=== PATIENT | male | born 1935 | race Caucasian/White ===

== ENCOUNTER 2019-12-26 09:02 | Day surgery (SDC) | payer MEDICARE ==
[2019-12-25 10:35] LABS: BASOPHILS # (AUTO) 0.1 X10'3 (0-0.2); EOSINOPHILS # (AUTO) 0.3 X10'3 (0-0.9); EOSINOPHILS % (AUTO) 5.4 % (0-6); HEMATOCRIT 38.7 % (42.0-52.0); LYMPHOCYTES # (AUTO) 1.5 X10'3 (1.1-4.8); MEAN CORPUSCULAR HEMOGLOBIN 34.9 PG (27.0-31.0); MEAN CORPUSCULAR HGB CONC 33.7 g/dL (33.0-36.5); MEAN CORPUSCULAR VOLUME 103.7 FL (78-98); MEAN PLATELET VOLUME 8.9 FL (7.4-10.4); MONOCYTES # (AUTO) 0.5 X10'3 (0-0.9); MONOCYTES % (AUTO) 9.7 % (2-12); NEUTROPHILS # (AUTO) 2.9 X10'3 (1.8-7.7); NEUTROPHILS % (AUTO) 54.9 % (42-75); PLATELET COUNT 185 X10'3 (140-440); RED BLOOD COUNT 3.73 X10'6 (4.70-6.10); RED CELL DISTRIBUTION WIDTH 14.1 % (11.5-14.5); WHITE BLOOD COUNT 5.2 X10'3 (4.5-11.0)
[2019-12-25 10:46] LABS: ALBUMIN 3.2 G/DL (3.4-5.0); ANION GAP 4 (8-16); BLOOD UREA NITROGEN 28 MG/DL (7-18); BUN/CREATININE RATIO 27.5 (5.4-32.0); CALCIUM 8.8 MG/DL (8.5-10.1); CHLORIDE 104 MMOL/L (99-107); CREATININE 1.02 MG/DL (0.60-1.10); GLUCOSE 103 MG/DL (70-104); PARTIAL THROMBOPLASTIN TIME 27 SECONDS (22-32); POTASSIUM 4.6 MMOL/L (3.5-5.1); SODIUM 139 MMOL/L (135-145); TOTAL CARBON DIOXIDE 30.9 MMOL/L (24-32); eGFR 70 ML/MIN
[2019-12-26] VITALS (11 sets, daily range): BP systolic 105–197; BP diastolic 56–106
[~2019-12-26] VITALS: Ht 182.9 cm; Wt 68.4 kg
[~2019-12-26 09:02] MED LIST: ATOR10TA87 PO; CLOP75TA35 PO; DIGO250T PO; FLUOROURACIL; GLUC1CAP17 PO; HYDR-4353 PO; METH-360 PO; OMEG1CAP2 PO; TRAZ-251 PO
[2019-12-26] MEDS ORDERED: normal saline 1,000 ML IV SCH ×2 (09:20→12:15)
[2019-12-26] MEDS ORDERED: diphenhydrAMINE 25mg capsule PO PRN (09:20)
[2019-12-26] MEDS ORDERED: acetylcysteine 200 MG/ml 4ml vial PO PRN (09:20)
[2019-12-26] MEDS ORDERED: DIGO125T97 PO (09:30)
[2019-12-26] MEDS ORDERED: OMEG1CAP26 PO (09:30)
[2019-12-26] MEDS ORDERED: WARF6TAB49 PO (09:30)
[2019-12-26] MEDS ORDERED: OXYC10TA47 PO (09:30)
[2019-12-26] MEDS ORDERED: LIDOcaine/PRILOcaine 5gm cream TP ONE ×2 (09:40→09:45)
[2019-12-26] MEDS ORDERED: verapamil 2.5 mg/ml inj IV ONE (10:33)
[2019-12-26] MEDS ORDERED: fentaNYL/PF 50MCG/1 ML 2ML syringe ONE (10:34)
[2019-12-26] MEDS ORDERED: nitroGLYCERIN-Tridil 50MG/D5W 250 ML IV ONE (10:34)
[2019-12-26] MEDS ORDERED: iohexol 350 MG/ML 50ML vial IV ONE (10:34)
[2019-12-26] MEDS ORDERED: midazolam 2 mg/2 ml injection ONE (10:34)
[2019-12-26] MEDS ORDERED: LIDOcaine 1% (10mg/ml)w/preservative injection 20ml MDV ONE (10:34)
[2019-12-26] MEDS ORDERED: heparin 1,000unit/ml 10ml vial 10 ML ONE (10:34)
[2019-12-26] MEDS ORDERED: iohexol 350MG/ML 100ml bottle IV ONE (10:34)
[2019-12-26 11:26] LABS: ISTAT HGB ART 13.6 g/dl (14.0-18.0); ISTAT Hct ART 40 %PCV (42-52); ISTAT O2 SATURATION ARTERIAL 96 % (95-98); ISTAT SOURCE ART
[2019-12-26] MEDS ORDERED: hydrALAZINE 20mg/ml inj. IV PRN (12:15)
[2019-12-26] MEDS ORDERED: pneumococcal 23-VAL P-sac vacc 25 mcg/0.5ml vial IMVAC ONE (15:00)
[2019-12-26] MEDS ORDERED: FLU VACC QS2020-21(6MOS UP)/PF 60 MCG/0.5 ML SYRINGE IMVAC ONE (15:05)
== END 2019-12-26 18:00 | disposition home or self-care (01) ==
LOC: SSTAY O 09:02
PROVIDERS: ATTEND Internal Medicine Cardiovascular Disease
DX: R94.39 Abnormal result of other cardiovascular function study (principal); I25.10 Atherosclerotic heart disease of native coronary artery without angina pectoris; Z23 Encounter for immunization; I10 Essential (primary) hypertension; J44.9 Chronic obstructive pulmonary disease, unspecified; I48.0 Paroxysmal atrial fibrillation; K21.9 Gastro-esophageal reflux disease without esophagitis; G25.81 Restless legs syndrome; E78.49 Other hyperlipidemia; I08.1 Rheumatic disorders of both mitral and tricuspid valves; M19.90 Unspecified osteoarthritis, unspecified site; Z95.0 Presence of cardiac pacemaker; Z79.01 Long term (current) use of anticoagulants; Z79.899 Other long term (current) drug therapy; Z87.19 Personal history of other diseases of the digestive system; Z98.890 Other specified postprocedural states; Z87.891 Personal history of nicotine dependence; Z80.0 Family history of malignant neoplasm of digestive organs
CPT/HCPCS: 36415; 80048; 82803; 85014; 85025; 85610; 85730; 90732; 93005; 93460; 99152; 99153; C1769; C1894; G0008; G0009; J0360; J1644; J2001; J2250; J3010; J7030; Q0163; Q2039; Q9967; A4620; J3490

== ENCOUNTER 2024-01-20 10:29 | Day surgery (SDC) | payer MEDICARE ==
[2024-01-19 15:19] LABS: BASOPHILS % (AUTO) 0.6 % (0-1); EOSINOPHILS # (AUTO) 0.2 X10'3 (0-0.9); EOSINOPHILS % (AUTO) 2.9 % (0-6); HEMATOCRIT 40.9 % (42.0-52.0); HEMOGLOBIN 14.1 g/dl (14.0-17.9); LYMPHOCYTES # (AUTO) 1.6 X10'3 (1.1-4.8); LYMPHOCYTES % (AUTO) 25.6 % (21-51); MEAN CORPUSCULAR HEMOGLOBIN 36.6 PG (27.0-31.0); MEAN CORPUSCULAR HGB CONC 34.4 g/dL (33.0-36.5); MEAN CORPUSCULAR VOLUME 106.5 FL (78-98); MONOCYTES # (AUTO) 0.6 X10'3 (0-0.9); MONOCYTES % (AUTO) 9.1 % (2-12); NEUTROPHILS # (AUTO) 3.9 X10'3 (1.8-7.7); NEUTROPHILS % (AUTO) 61.8 % (42-75); PLATELET COUNT 238 X10'3 (140-440); RED BLOOD COUNT 3.84 X10'6 (4.70-6.10); WHITE BLOOD COUNT 6.4 X10'3 (4.5-11.0)
[2024-01-19 15:30] LABS: ALBUMIN 3.3 G/DL (3.4-5.0); ANION GAP 5 (8-16); BLOOD UREA NITROGEN 38 MG/DL (7-18); BUN/CREATININE RATIO 25.7 (10.0-20.0); CALCIUM 8.8 MG/DL (8.5-10.1); CHLORIDE 105 MMOL/L (99-107); CREATININE 1.48 MG/DL (0.60-1.10); GLUCOSE 98 MG/DL (70-104); POTASSIUM 5.3 MMOL/L (3.5-5.1); SODIUM 140 MMOL/L (135-145); TOTAL CARBON DIOXIDE 30.4 MMOL/L (24-32); eGFR 45 ML/MIN
[2024-01-19 15:34] LABS: APTT 27 SECONDS (22-32); INR 1.1 INR; PROTHROMBIN TIME 11.3 SECONDS (9.0-12.0)
[2024-01-20] VITALS (20 sets, daily range): BP systolic 101–171; BP diastolic 48–116; PULSE 60–77; RESP 12–19; TEMP 97.4; O2SAT 95–98
[~2024-01-20] VITALS: Ht 180.3 cm; Wt 70.6 kg
[~2024-01-20 10:29] MED LIST changes: -CLOP75TA35 PO; +DIGO125T97 PO; -DIGO250T PO; -FLUOROURACIL; -GLUC1CAP17 PO; -HYDR-4353 PO; -METH-360 PO; -OMEG1CAP2 PO; +OMEG1CAP26 PO; +OXYC10TA47 PO; -TRAZ-251 PO; +WARF6TAB49 PO; +metoprolol succinate 25mg (24-HOUR) SR. Tablet PO SCH
[2024-01-20] MEDS ORDERED: ceFAZolin 2gm in dextrose, iso 50 ML IV ONE (11:10)
[2024-01-20] MEDS ORDERED: ESCI-8 PO (11:29)
[2024-01-20] MEDS ORDERED: midazolam 1 mg/ML 2ml injection ONE ×2 (12:00→13:13)
[2024-01-20] MEDS ORDERED: ceFAZolin 1000mg inj ONE (12:00)
[2024-01-20] MEDS ORDERED: LIDOcaine 1% W/epiNEPHrine 1:100,000 20ml vial ONE (12:00)
[2024-01-20] MEDS ORDERED: fentaNYL/PF 50MCG/1 ML 2ML syringe ONE (12:00)
[2024-01-20] MEDS ORDERED: HYDROcodone/acetaminophen 5mg/325mg tablet PO PRN (14:00)
[2024-01-20] MEDS: VANCOMYCIN 1GM 200ML H20 (PEG) 200 ML IV ONE (15:15)
[2024-01-20] MEDS ORDERED: METO-539 PO (15:26)
[2024-01-20] MEDS ORDERED: CEPH250T PO (15:26)
[2024-01-20] MEDS: HYDROcodone/acetaminophen 10/325mg tab PO PRN (15:59)
[2024-01-20] MEDS: hydrALAZINE 20mg/ml inj. IV SCH (17:10)
== END 2024-01-20 18:45 | disposition home or self-care (01) ==
LOC: SSTAY O 10:29
PROVIDERS: ATTEND Internal Medicine Cardiovascular Disease
DX: Z45.010 Encounter for checking and testing of cardiac pacemaker pulse generator [battery] (principal); I73.9 Peripheral vascular disease, unspecified; I48.0 Paroxysmal atrial fibrillation; I10 Essential (primary) hypertension; I25.119 Atherosclerotic heart disease of native coronary artery with unspecified angina pectoris; K21.9 Gastro-esophageal reflux disease without esophagitis; Z98.890 Other specified postprocedural states; I48.91 Unspecified atrial fibrillation; E78.5 Hyperlipidemia, unspecified; J44.9 Chronic obstructive pulmonary disease, unspecified; I49.5 Sick sinus syndrome; Z79.01 Long term (current) use of anticoagulants; Z79.899 Other long term (current) drug therapy
CPT/HCPCS: 33228; 36415; 80048; 85025; 85610; 85730; 93005; 99152; 99153; A6402; C1785; J0360; J0690; J2250; J3010; J3372; J3490; J7030; Z7610; A6449

== ENCOUNTER 2024-08-02 08:27 | Outpatient (CLI) | payer MEDICARE ==
[2024-08-02] VITALS (21 sets, daily range): BP systolic 99–153; BP diastolic 51–111; PULSE 51–70
[~2024-08-02 08:27] MED LIST changes: +ESCI-8 PO; +METO-539 PO; +OMEG-151 PO; -OMEG1CAP26 PO; -OXYC10TA47 PO; -metoprolol succinate 25mg (24-HOUR) SR. Tablet PO SCH
--- NOTE | 2024-08-02 19:28 | CARDIOLOGY REPORT ---
DATE OF SERVICE: 08/02/2024 DICTATING PHYSICIAN: RANDEE Lovelace MD CARDIAC TILT TABLE REPORT PRIMARY NIGHT NURSE: RANDEE Lovelace MD INDICATIONS: The patient is an 88-year-old male with history of dizziness, lightheadedness. This study was done to evaluate for cardiodepressive type syncope. DESCRIPTION OF PROCEDURE: In supine resting condition, the patient's heart rate was 65 per minute with a blood pressure of 153/111. The patient was asymptomatic. After 40 minutes of 70-degree tilt, the patient's heart rate was 60 per minute with blood pressure 110/62. The patient did complain of dizziness. In supine recovery condition, the patient's heart rate was 64 per minute with blood pressure 117/58. The patient was asymptomatic. IMPRESSION: An 88-year-old male with dizziness with cardiac tilt table findings. His systolic repair dropped from 153/111 to 110/62. His heart rate dropped from 65 to 60 per minute. These findings are suspicious for cardiodepressive type of physiology. RECOMMENDATIONS: Recommend clinical correlation. RANDEE Lovelace MD TID: [id number] RECEIPT: [id number] CORNEL/REMIGIO/RINA
== END 2024-08-02 23:59 | disposition home or self-care (01) ==
LOC: CARD DIAG 08:27
PROVIDERS: ATTEND Internal Medicine Cardiovascular Disease
DX: R42 Dizziness and giddiness (principal)
CPT/HCPCS: 93660